=== PATIENT | female | born 1960 | race Caucasian/White ===

== ENCOUNTER 2022-01-22 14:51 | Inpatient (IN) | payer OTHER ==
[~2022-01-22] VITALS: Ht 162.6 cm; Wt 77.5 kg
[2022-01-22 15:22] LABS: BASOPHILS ABSOLUTE AUTO 0.06 K/mm3 (0.00-0.23); BASOPHILS PERCENT AUTO 0 % (0-2); EOSINOPHILS ABSOLUTE AUTO 0.02 K/mm3 (0.00-0.68); EOSINOPHILS PERCENT AUTO 0 % (0-6); Hematocrit 41.8 % (33.0-51.0); Hemoglobin 13.4 g/dL (11.5-16.0); IMMATURE GRAN ABSOLUTE AUTO 0.11 K/mm3 (0.00-0.10); IMMATURE GRAN PERCENT AUTO 1 % (0-1); LYMPHOCYTES PERCENT AUTO 10 % (21-46); MONOCYTES ABSOLUTE AUTO 0.92 K/mm3 (0.16-1.47); MONOCYTES PERCENT AUTO 7 % (4-13); Mean Corpuscular HGB 28.6 pg (26.0-34.0); Mean Corpuscular HGB Conc 32.1 g/dL (31.5-36.5); Mean Corpuscular Volume 89 fL (80-100); Mean Platelet Volume 8.5 fL (9.1-12.4); NEUTROPHILS PERCENT AUTO 82 % (41-73); Platelet Count 319 K/mm3 (150-400); RDW Coefficient Variation 15.9 % (11.7-14.2); RDW Standard Deviation 51.7 fL (35.1-46.3); Red Blood Cell Count 4.69 M/mm3 (3.80-5.20); White Blood Cell Count 14.11 K/mm3 (4.00-11.30)
[2022-01-22] MEDS ORDERED: PRED5 PO (15:31)
[2022-01-22] MEDS ORDERED: CLON.5 PO (15:31)
[2022-01-22] MEDS ORDERED: HYDROCODONE-AC1 EA16 PO (15:31)
[2022-01-22] MEDS ORDERED: METO50ER PO (15:31)
[2022-01-22 15:46] LABS: Alanine Aminotransfer (ALT/SGP 19 U/L (12-78); Albumin/Globulin Ratio 0.7 (0.8-1.8); Alk Phos 88 U/L (50-136); Anion Gap 6 mmol/L (6-16); Aspartate Aminotrans (AST/SGOT 10 U/L (12-37); Bilirubin, Total 0.2 mg/dL (0.1-1.0); Blood Urea Nitrogen 11 mg/dL (8-24); Bun/Creatinine Ratio 13.8 (12.0-20.0); CHOL/HDL RATIO 6.3; CO2, Blood 26 mmol/L (21-32); Calcium, Blood 9.2 mg/dL (8.5-10.1); Chloride, Blood 108 mmol/L (98-108); Cholesterol 219 mg/dL (50-200); Globulin, Blood 4.6 g/dL (2.2-4.0); Glomerular Filtration Rate >60 (60-); Glucose, Blood 150 mg/dL (70-99); HDL Cholesterol 35 mg/dL (>39); LDL/HDL RATIO Unable to Calculate; Low Density Lipoprotein Chol Unable to Calculate mg/dL (0-110); Magnesium, Blood 2.2 mg/dL (1.6-2.4); Potassium, Blood 3.3 mmol/L (3.5-5.5); Sodium, Blood 140 mmol/L (136-145); Total Protein, Blood 7.6 g/dL (6.4-8.2); Triglycerides 419 mg/dL (30-160); Very Low Density Lipoprot Chol Unable to Calculate mg/dL (6-32)
[2022-01-22 15:56] LABS: International Normalized Ratio 1.09; Prothrombin Time Results 11.4 Sec (9.7-11.5)
--- NOTE | 2022-01-22 16:15 | NUR ---
RECEIVED PT FROM [facility] S/P STENT TO [facility]. ADMITTING DX-STEMI. PT IS A&OX4 AND APPEARS EXTREMELY ANXIOUS. PT REPORTS HX- RA. SHE STATES THAT SHE WAS ADVISED NOT TO BE VACCINATED. PT REFUSES TO REMOVE HER MASK. PT CRYING AND HYSTERICAL AT TIMES. PT HAS HISTORY OF CHRONIC PAIN AND SHE REPORTS THAT SHE IS UNABLE TO SIT UP IN BED AND SPENDS MOST OF HER TIME AT HOME IN BED. PT DENIES CP OR SOB. ECG SHOWS SR. BP STABLE. LUNGS CLEAR AND SATS>90% ON RA. PT GIVEN A SIP OF WATER-TOLERATED WELL. RIGHT RADIAL TR BAND IN PLACE WITH 10 CC TO CUFF-SPO2 ON RIGHT HAND AND GOOD PLETH. PT DOES STATE THAT HER FINGERS FEEL SLIGHTLY NUMB. PT IN BRIEFLY TO SEE PT. UPDATED TO CURRENT STATUS AND PLAN OF CARE. PT SPOUSE REPORTS THAT PT IS "ALWAYS ANXIOUS."
[2022-01-22 18:26] LABS: Source, Urine Foley catheter
[2022-01-22 18:32] LABS: Bilirubin, Urine Neg (Neg); Blood, Urine Neg (Neg); Glucose Qualitative, Urine 3+ (Neg); Ketones, Urine Neg (Neg); Leukocyte Esterase, Urine Neg (Neg); Nitrite, Urine Neg (Neg); Protein, Urine Neg (Neg); Urobilinogen, Urine NORM (Normal); pH, Urine 6.5 (5.0-8.0)
[2022-01-22 18:40] LABS: Appearance, Urine Clear (Clear); Color, Urine Pale Yellow (P-Yellow)
--- NOTE | 2022-01-22 18:45 | NUR ---
PT CONTINUES TO BE QUITE ANXIOUS AND INCONSOLABLE AT TIMES. PT ASKED "CAN I GO HOME NOW?" EXPLAINED TO PT AT LENGTH THE NEED FOR HER TO REMAIN IN THE HOSPITAL SHE JUST HAD A HEART ATTACK. PT VERY TEARFUL/HYSTERICAL. PT APPEARS TO HAVE VERY LIMITED COPING SKILLS. PT REPORTS 7/10 PAIN FROM HER "RA PAIN." PT GIVEN DINNER TRAY AND THEN HER PREDNISONE PER REQUEST AND NORCO FOR PAIN-SEE EMAR. PT ABLE TO FEED HERSELF WITH HER LEFT HAND, BUT FORGETS AT TIMES AND USES THE RIGHT HAND. TR BAND IN PLACE. NO ACUTE BLEEDING NOTED, BUT THERE IS NOW A SMALL HEMATOMA FORMING. PT STATES THAT THE FINGERS OF HER RIGHT HAND ARE NO LONGER NUMB. RIGHT RADIAL SITE REMAINS SOFT AND NONTENDER.
--- NOTE | 2022-01-22 19:30 | NUR ---
ASSUMED CARE REPORT RECEIVED FROM VASU LEGER. TR BAND IN PLACE TO RT RADIAL SITE WITH 10CC AIR IN BALLOON. FLUIDS INF TO RT AC @ 200ML/HR. BURNETT PATENT AND DRAINING TO GRAVITY. MEAL TRAY IN FRONT OF PATIENT AND CELL PHONE IN BED WITH PATIENT. PATIENT IS TEARFUL UPON ENTERING ROOM. SPO2 MID TO HIGH 90'S ON ROOM AIR. MONITOR SHOWS SINUS RHYTHIM W/ RATE IN 70'S.
--- NOTE | 2022-01-23 05:57 | NUR ---
SHIFT SUMMARY PATIENT SLEPT MOST OF SHIFT. TR BAND REMOVED @ 0300. OPSITE PLACED OVER INSERTION SITE. SITE REMAINS SOFT AND NONTENDER, FREE OF HEMATOMA, BLEEDING, AND OOZING. WHITE BRACE REAPPLIED TO RT HAND/WRIST A REMINDER FOR PATIENT TO NOT USE THE HAND. PATIENT WAS TEARFUL AND DIFFICULT TO CONSOLE WHEN AWAKE. MULTIPLE DISCUSSIONS BETWEEN THIS NURSE AND THE PATIENT REGARDING COPING. BURNETT PATENT AND DRAINED 1100ML URINE TO GRAVITY. NO MEDS INF AT THIS TIME. PATIENT REQUIRED ONE DOSE OF CLONAZEPAM 0.5MG PO FOR ANXIETY. PATIENT DENIED CHEST PAIN AND NAUSEA/HEARTBURN T/O SHIFT. NO OTHER MAJOR CHANGES DURING SHIFT.
--- NOTE | 2022-01-23 07:56 | NUR ---
ASSUMED PT CARE CEVIK @ BEDSIDE FOR AM ROUNDS. PT IS NOW PCU STATUS. PLAN FOR ECHO THIS AM & DC HOME TOMORROW. PT IS AGREEABLE. R RADIAL SITE PWD, SOFT, NONTENDER. SECURED w/ ARMBOARD TO REDUCE WRIST MOBILITY & PT REMINDER TO NOT BEND. CLEAR DRESSING INTACT, NO BLEEDING. PT DENIES ANY CP, DISCOMFORT. HOWEVER PT IS TEARFUL, ANXIOUS WHICH IS UNCHANGED SINCE ARRIVAL TO THE HOSPITAL PER PREVIOUS RN & PREVIOUS NOTATIONS.
--- NOTE | 2022-01-23 10:22 | NUR ---
UPDATE: US COMPLETE. PT CONTINUES TO BE TEARFUL, ANXIOUS. AFTER ALLOWING PT TO CRY & TALK FOR SEVERAL MINS. PT APPEARS TO BE MUCH MORE REASONABLE W/ HER EMOTIONS; EXPRESSES HER ANXIETY W/ BEING IN THE HOSPITAL. PT EXPLAINS SHE RECENTLY HAD SEVERAL DEATHS IN HER FAMILY & HAS AN EXTENSIVE FAMILY CARDIAC Hx WHICH HAS EXACERBATED HER ALREADY HIGH ANXIETY & TEARFULNESS @ BASELINE. PT ADDS SHE IS VERY THANKFUL FOR THE CARE SHE HAS RECEIVED HERE & DENIES ANY UNMET MEEDS. WHEN NO DISTURBED PT RESTS W/ EYES CLOSED. CALL LIGHT W/IN REACH.
--- NOTE | 2022-01-23 13:38 | NUR ---
UPDATE: TRANSFER TO PCU REPORT GIVEN TO VASU SALAS. PT TRANSFERRED TO PCU 4.
--- NOTE | 2022-01-23 14:00 | NUR ---
TRANSFER NOTE: PATIENT ALERT AND ORIENTED X4. VERY EMOTIONAL AND TEARFUL. AT BEDSIDE AND TEARFUL WELL. DENIES NUMBNESS/TINGLING. ON ROOM AIR, LUNGS SOUNDING CLEAR. CHRONIC COUGH. TELE SHOWING SINUS RHYTHM WITH HR 70'S. DENIES CHEST PAIN/PRESSURE. RIGHT RADIAL SITE WNL, AND ARM BOARD IN PLACE. SLIGHT BRUISING TO SITE. DENIES ABDOMINAL PAIN/NAUSEA. DRINKING WATER AT THIS TIME. BURNETT CATH REMAINS IN PLACE. PATIENT NOT WANT IT OUT RIGHT NOW. VITAL SIGNS STABLE. CALL LIGHT IN REACH. PATIENT ENCOURAGED TO DEEP BREATH WHEN FEELING ANXIOUS. ORIENTED TO ROOM/UNIT. WILL CONTINUE TO MONITOR.
--- NOTE | 2022-01-23 17:46 | NUR ---
SHIFT SUMMARY: NO ACUTE CHANGES. TELE REMAINS UNCHANGED. REMAINS ON ROOM AIR. RIGHT RADIAL SITE WNL. SCANT AMOUNT OF DRAINAGE UNDER DRESSING THAT REMAINS UNCHANGED. SLIGHT BRUISING AT SITE, REMAINS UNCHANGED. STILL VERY TEARFUL AND ANXIOUS. WORRIED ABOUT GOING HOME AND MOVING WRIST. PATIENT DOES WELL WITH REASSURENCE. TALKING ON PHONE WITH FAMILY THROUGHOUT THIS EVENING VERY TEARFUL. TOLERATING PO DIET. BURNETT CATH REMAINS IN PLACE DRAINING CLEAR/YELLOW URINE. DENIES NEEDS AT THIS TIME. WILL CONTINUE TO MONITOR AND REPORT OFF.
--- NOTE | 2022-01-23 20:53 | NUR ---
PT IS EMOTIONAL AND CRYING IN ROOM "WANTS TO GO HOME." VITALS ARE STABLE AND IS ON ROOM AIR. DENIES CHEST PAIN OR SOB. WAS VERY CAUTIONS AND ASKED SEVERAL QUESTION OVER MEDICATIONS SHE WAS TAKING WELL QUESTIONS REGARDING CARE AND DISCHARGE. CALL LIGHT IS WITHIN REACH.
--- NOTE | 2022-01-24 05:21 | NUR ---
SHIFT SUMMARY PT IS ALERT AND ORIENTED. PT HAS BEEN VERY EMOTIONAL AT TIMES AND HAS CRIED BECAUSE SHE WANTS TO GO HOME WITH HER FAMILY. PT DENIES CHEST PAIN/PRESSURE OR SOB. THERE HAVE BEEN NO ACUTE CHANGES T/O THE NIGHT. VITALS HAVE BEEN STABLE AND SATS HAVE BEEN >92% ON ROOM AIR. RADIAL SITE IS WNL AND SKIN IS CDI WITH ARMBOARD IN PLACE. BURNETT IS IN PLACE AND DRAINING WITH GRAVITY. CALL LIGHT IS WITHIN REACH.
[2022-01-24] MEDS ORDERED: ASPI81CH PO (11:25)
[2022-01-24] MEDS ORDERED: CLOP75 PO (11:26)
[2022-01-24] MEDS ORDERED: LISI5 PO (11:26)
[2022-01-24] MEDS ORDERED: ATOR40TA PO (11:26)
[2022-01-24] MEDS ORDERED: PANT40 PO (11:42)
--- NOTE | 2022-01-24 13:37 | NUR ---
DISCHARGE SUMMARY: PATIENT WAS DISCHARGED VIA WHEELCHAIR AND WHEELED OUT BY RN AND STUDENT RN, SIGNIFICANT OTHER PRESENT FOR DISHCARGE INSTRUCTIONS, MEDS FAXED BY OFFBEARER, DISCHARGE INSTRUCTIONS WERE COMPLETELY UNDERSTOOD BY BOTH THE PATIENT AND SIGNIFICANT OTHER. PATIENT DENIED CHEST PAIN OR SOB. PATIENT WAS HAPPY TO GO HOME. DISCHARGE INSTRUCTIONS STENT CARDS, AND PERSONAL BELONGINGS WERE WITH PATIENT. IV DISCONTINUED, ARMBOARD PRESENT, R RADIAL SITE SOME BRUISING, BUT RECOVERED WELL. PATIENT HAD NO FURTHER QUESTIONS COMMENTS OR CONCERNS.
== END 2022-01-24 13:37 | disposition home or self-care (01) | DRG 247 ==
LOC: ER 14:51 → ICUW 15:15 → PCU 01-23 13:29
PROVIDERS: Student in an Organized Health Care Education/Training Program; ADMIT Internal Medicine Interventional Cardiology
PROC: 027034Z Dilation of Coronary Artery, One Artery with Drug-eluting Intraluminal Device, Percutaneous Approach (ICD-10-PCS; principal; 2022-01-22)
PROC: 4A023N7 Measurement of Cardiac Sampling and Pressure, Left Heart, Percutaneous Approach (ICD-10-PCS; 2022-01-22)
PROC: B2111ZZ Fluoroscopy of Multiple Coronary Arteries using Low Osmolar Contrast (ICD-10-PCS; 2022-01-22)
DX: I21.19 ST elevation (STEMI) myocardial infarction involving other coronary artery of inferior wall (principal); I10 Essential (primary) hypertension; M06.9 Rheumatoid arthritis, unspecified; I25.10 Atherosclerotic heart disease of native coronary artery without angina pectoris; F17.200 Nicotine dependence, unspecified, uncomplicated; Z71.6 Tobacco abuse counseling
CPT/HCPCS: 36415; 51702; 76937; 80053; 80061; 81003; 83735; 84484; 85025; 85347; 85610; 85730; 86850; 86900; 86901; 92941; 93306; 93454; 96374; 99152; 99153; 99285-25; A9270; C1725; C1769; C1874; C1887; C1894; C9606; J0461; J1644; J1650; J2060; J2250; J3010; J7030; J7050; J7512; Q9967

== ENCOUNTER 2023-05-07 08:43 | Emergency (ER) | payer OTHER ==
[~2023-05-07] VITALS: Ht 162.6 cm; Wt 74.8 kg
[~2023-05-07 08:43] MED LIST: ASPI81CH PO; ATOR40TA PO; CLON.5 PO; CLOP75 PO; HYDROCODONE-AC1 EA16 PO; LISI5 PO; METO50ER PO; ONDA4ODT MM; PANT40 PO; PRED5 PO
[2023-05-07 09:22] LABS: Source, Urine Clean Catch
[2023-05-07 09:25] LABS: BASOPHILS ABSOLUTE AUTO 0.04 K/mm3 (0.00-0.23); BASOPHILS PERCENT AUTO 0 % (0-2); EOSINOPHILS ABSOLUTE AUTO 0.03 K/mm3 (0.00-0.68); EOSINOPHILS PERCENT AUTO 0 % (0-6); Hematocrit 42.6 % (33.0-51.0); IMMATURE GRAN ABSOLUTE AUTO 0.07 K/mm3 (0.00-0.10); IMMATURE GRAN PERCENT AUTO 1 % (0-1); LYMPHOCYTES ABSOLUTE AUTO 3.29 K/mm3 (0.84-5.20); LYMPHOCYTES PERCENT AUTO 35 % (21-46); MONOCYTES ABSOLUTE AUTO 0.76 K/mm3 (0.16-1.47); MONOCYTES PERCENT AUTO 8 % (4-13); Mean Corpuscular HGB Conc 32.9 g/dL (31.5-36.5); Mean Corpuscular Volume 88 fL (80-100); Mean Platelet Volume 8.5 fL (9.1-12.4); NEUTROPHILS ABSOLUTE AUTO 5.33 K/mm3 (1.96-9.15); NEUTROPHILS PERCENT AUTO 56 % (41-73); Platelet Count 273 K/mm3 (150-400); RDW Coefficient Variation 16.3 % (11.7-14.2); Red Blood Cell Count 4.82 M/mm3 (3.80-5.20); White Blood Cell Count 9.52 K/mm3 (4.00-11.30)
[2023-05-07 09:26] LABS: Bilirubin, Urine Neg (Neg); Blood, Urine Neg (Neg); Glucose Qualitative, Urine Neg (Neg); Ketones, Urine Neg (Neg); Leukocyte Esterase, Urine 1+ (Neg); Nitrite, Urine Neg (Neg); Protein, Urine Neg (Neg); Specific Gravity, Urine 1.005 (1.003-1.022); Urobilinogen, Urine NORM (Normal)
[2023-05-07 09:31] LABS: Appearance, Urine Clear (Clear); Color, Urine Yellow (P-Yellow)
[2023-05-07 09:33] LABS: Bacteria Rare /hpf; Red Blood Cells, Urine 0-2 /hpf (0-2); Squamous Epithelial Cells Few /hpf (Few); White Blood Cells, Urine 0-2 /hpf (0-5)
[2023-05-07 09:38] LABS: Albumin, Blood 3.4 g/dL (3.4-5.0); Albumin/Globulin Ratio 0.8 (0.8-1.8); Bilirubin, Total 0.6 mg/dL (0.1-1.0); Bun/Creatinine Ratio 13.7 (12.0-20.0); Creatinine, Blood 0.73 mg/dL (0.40-1.00); Globulin, Blood 4.3 g/dL (2.2-4.0); Potassium, Blood 3.6 mmol/L (3.5-5.5); Total Protein, Blood 7.7 g/dL (6.4-8.2)
[2023-05-07 10:17] VITALS: BP 103/65
== END 2023-05-07 10:16 | disposition home or self-care (01) ==
LOC: ER 08:43
PROVIDERS: Student in an Organized Health Care Education/Training Program
DX: K64.9 Unspecified hemorrhoids (principal); I10 Essential (primary) hypertension; F17.210 Nicotine dependence, cigarettes, uncomplicated; Z79.52 Long term (current) use of systemic steroids; Z79.02 Long term (current) use of antithrombotics/antiplatelets; Z79.899 Other long term (current) drug therapy
CPT/HCPCS: 80053; 81001; 85025; 86850; 86900; 86901; J2060

== ENCOUNTER 2024-07-28 14:52 | Emergency (ER) | payer OTHER ==
[~2024-07-28] VITALS: Ht 162.6 cm; Wt 73.9 kg
[2024-07-28 15:13] VITALS: BP 117/89
[2024-07-28] MEDS ORDERED: Ondansetron 4 MG SoluTab SL ONE (15:40)
[2024-07-28] MEDS ORDERED: ONDA4ODT MM (15:41)
== END 2024-07-28 15:47 | disposition home or self-care (01) ==
LOC: ER 14:52
DX: U07.1 COVID-19 (principal); I10 Essential (primary) hypertension; Z87.891 Personal history of nicotine dependence; Z79.02 Long term (current) use of antithrombotics/antiplatelets; Z79.52 Long term (current) use of systemic steroids; Z79.899 Other long term (current) drug therapy
CPT/HCPCS: 99283; A9270